=== PATIENT | male | born 2000 | race African-American/Black ===

== ENCOUNTER 2022-01-04 16:21 | Emergency (ER) | payer OTHER, SELFPAY ==
[2022-01-04 16:26] VITALS: BP 116/74; PULSE 91; RESP 18; TEMP 36.8; O2SAT 97; BMI 25.3
--- NOTE | 2022-01-04 17:10 | ED_ITS ---
HPI - General Adult General Time Seen by Provider: 17:11 Date Seen: 01/04/22 Chief complaint: Head Injury/Pain Stated complaint: HIT HEAD,HEADACHE Time Seen by Provider: 01/04/22 17:09 Source: patient Mode of arrival: ambulatory Limitations: no limitations History of Present Illness HPI narrative: Patient is a [employer] student coming in after a head injury during soccer. He hit his head he thinks maybe on the right side. He for a couple of hours had some sharp stabbing type pains in the right side of his head. It happened a couple of hours ago. Since being seen in our lobby waiting to be seen his symptoms have resolved. He initially felt his vision felt a little off. He did continue plain however. He has had no vomiting, no amnesia. No headache at this time. He did not ice his head, he did not take any Tylenol or ibuprofen. He is supposed to play soccer tomorrow and his teammates wanted him to get checked out. He has no prior history of head injury. 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 There was no loss of consciousness, no neck pain, no other injury. He is not on blood thinners. Related Data Home Medications Medication Instructions Recorded Confirmed No Known Home Medications 01/04/22 01/04/22 Allergies Allergy/AdvReac Type Severity Reaction Status Date / Time No Known Drug Allergies Allergy Verified 01/04/22 16:28 Review of Systems Status of ROS: Reports: 6 or more systems reviewed and unremarkable except as noted in History and below Exam Const: Vital Signs, click to edit/add: Vital Signs - 24 hr 01/04/22 16:26 Temperature 98.2 F Pulse Rate [Right Pulse Oximeter] 91 Respiratory Rate 18 Blood Pressure [Ri ght Upper Arm] 116/74 Pulse Oximetry 97 Oxygen Delivery Me thod Room Air Documenting provider has reviewed patient's vital signs: yes Common nor mals: no apparent distress, average body habitus, oriented x3, no limitations, healthy appearing, alert and well nourished General appearance: cooperative, comfortable and well kempt HENMT: Common normals: normocephalic, head/scalp atraumatic (No palpable defect or pain, no open wounds noted), hearing grossly normal bilaterally, external ears normal, EAC's normal, TM's normal bilaterally, external nose normal, nasal mucous membranes and turbinates normal, moist oral mucous membranes, oropharynx normal, dentition normal and gingiva normal Head and scalp: normocephalic and atraumatic (No palpable defect or pain, no open wounds noted) Nose: external nose normal and nasal mucous membranes and turbinates normal External ear: external ears normal External auditory canal: EAC's normal Tympanic membrane: TM's normal bilaterally Eye: Common normals: PERRL, EOMs intact bilaterally, conjunctivae normal and no scleral icterus Conjunctiva: conjunctiva(e) normal Pupil: PERRL Neck & C-Spine: Common normals: full ROM, no lymphadenopathy, supple, no meningeal signs, no JVD and thyroid normal Thyroid: thyroid normal Resp: Common normals: normal respiratory effort, no retractions, no use of accessory muscles and clear to auscultation bilaterally Auscultation: clear to auscultation bilaterally Cardio: Common normals: no JVD, regular rate, regular rhythm, S1 normal heart sound, S2 normal heart sound, no gallops, no clicks and no murmurs Rate: regular rate Rhythm: regular rhythm Heart sounds: S1 normal and S2 normal GI: Common normals: Normal to inspection, nondistended, normoactive bowel sounds present, soft to palpation, non-tender and no hepatosplenomegaly Palpation: soft and no hepatosplenomegaly Neuro: [place] Coma Scale: document GCS findings [place] coma scale eye opening: Spontaneous (4) Ce coma scale verbal response: Orientated (5) [place] coma scale motor response: Obey commands (6) Ce coma scale total score: 15 Common normals: oriented x3, CN's II-XII intact bilaterally, moves all extremities, no focal motor deficits, no sensory deficits noted and gait normal Sensorium/orientation: alert Meningeal signs: no meningeal signs Coordination/balance: [id number] test normal, tandem gait normal and Romberg test negative Speech: speech normal Gait (neuro): normal gait Motor exam: strength 5/5 throughout Coordination: [id number] test normal and tandem gait normal Psych: Appearance: well kempt Course Course Hospital Course: Reviewed the thanh on [facility] with the [place] head injury rules. This is not a high impact injury, he has no concerning findings or history that would necessitate imaging. He is wondering if he should plate tomorrow. Ultimately t hat will be up on his decision. Reviewed with him given that he had had pain after falling on his head, it would be recommended for a period of pulling back from any activity where he might re-injure his head. I think it is safest to go with some light activity and then increase his aerobic activity over the week. If he is tolerating his schoolwork, tolerating increased aerobic activity through the week, then he could consider return to play as long as he is been asymptomatic. Vital Signs Vital signs: Initial Vital Signs Temperature 98.2 F 01/04/22 16:26 Temperature Source Temporal Artery Scan 01/04/22 16:26 Pulse Rate 91 01/04/22 16:26 Respiratory Rate 18 01/04/22 16:26 Blood Pressure 116/74 01/04/22 16:26 Blood Pressure Mean 88 01/04/22 16:26 Blood Pressure Position Sitting 01/04/22 16:26 Pulse Oximetry 97 01/04/22 16:26 Oxygen Delivery Method 01/04/22 16:26 Vital Signs Temperature 98.2 F 01/04/22 16:26 Pulse Rate 91 01/04/22 16:26 Respiratory Rate 18 01/04/22 16:26 Blood Pressure 116/74 01/04/22 16:26 Pulse Oximetry 97 01/04/22 16:26 Oxygen Delivery Method 01/04/22 16:26 Temperature 98.2 F 01/04/22 16:26 Pulse Rate 91 01/04/22 16:26 Respiratory Rate 18 01/04/22 16:26 Blood Pressure 116/74 01/04/22 16:26 Pulse Oximetry 97 01/04/22 16:26 Oxygen Delivery Method 01/04/22 16:26 Critical Care Time Critical Care Time Critical Care Time: No Discharge Plan Discharge Clinical Impression: Closed head injury Condition: Stable Instructions: Concussion (ED), Head Injury (ED) Additional Instructions: If you have further headaches, can try Tylenol and/or ibuprofen per bottle directions as needed. As far as activity, do think you can do your routine studies in classes, light activity. If you are having no further headaches, over the week can increase her aerobic activity and if at the end of the week you have not had any problems with ongoing headaches or concussion symptoms, can attempt return to play. If you are having symptoms over the week that could be consistent with concussion, do recommend re-evaluation with the nurse practitioner on campus or 1 of the local clinics. Prescriptions: No Action No Known Home Medications Stand Alone Forms: [employer] Info Instructions
== END 2022-01-04 17:51 | disposition home or self-care (01) ==
PROVIDERS: Emergency Provider Family Medicine
DX: S06.0X0A Concussion without loss of consciousness, initial encounter (principal); R40.2413 Glasgow coma scale score 13-15, at hospital admission; Y93.66 Activity, soccer; Y92.322 Soccer field as the place of occurrence of the external cause
CPT/HCPCS: 99283